=== PATIENT | male | born 1955 | race Caucasian/White ===

== ENCOUNTER 2017-04-30 14:29 | Emergency (ER) | payer OTHER, BC ==
--- NOTE | 2017-04-30 16:53 | EDM.PDOC ---
ED HPI GENERAL MEDICAL PROBLEM - General Chief Complaint: Lower Extremity Injury/Pain Stated Complaint: LEFT LEG Time Seen by Provider: 04/30/17 16:46 Source of Information: Reports: Patient, Family History Limitations: Reports: Physical Impairment - History of Present Illness INITIAL COMMENTS - FREE TEXT/NARRATIVE: 61 y.o.w.m -prev. healthy-came to the ed wit sudden onset of left thigh pain and swelling after he over stretched his legs yesterday. He noticed some discoloration at his left ant thigh as well. No N/V/D, dizziness or any other acute medical issue at this time. Onset: Today Onset Date: 04/30/17 Onset Time: 08:00 Duration: Hour(s): Treatments HEALTHCARE CONSULTANT: Reports: Cold Therapy, NSAIDS Left Upper Leg Pain Score (Numeric/FACES): 4 - Related Data Allergies Allergy/AdvReac Type Severity Reaction Status Date / Time No Known Allergies Allergy Verified 04/30/17 15:13 Home Meds: Home Meds NK [No Known Home Meds] 04/30/17 [History] Past Medical History - Infectious Disease History Infectious Disease History: Reports: Chicken Pox, Mumps - Past Surgical History Musculoskeletal Surgical History: Reports: Other (See Below) Other Musculoskeletal Surgeries/Procedures:: back surgury fusion L 4 AND 5 Social & Family History - Tobacco Use Smoking Status *Q: Never Smoker Second Hand Smoke Exposure: No - Caffeine Use Caffeine Use: Reports: Coffee - Recreational Drug Use Recreational Drug Use: No Review of Systems - Review of Systems Review Of Systems: See Below Constitutional: Reports: No Symptoms Eyes: Reports: No Symptoms Ears: Reports: No Symptoms Nose: Reports: No Symptoms Mouth/Throat: Reports: No Symptoms Respiratory: Reports: No Symptoms Cardiovascular: Reports: No Symptoms GI/Abdominal: Reports: No Symptoms Genitourinary: Reports: No Symptoms Musculoskeletal: Reports: Muscle Pain (left thigh) Skin: Reports: Rash (left thigh) Neurological: Reports: No Symptoms Psychiatric: Reports: No Symptoms ED EXAM, GENERAL - Physical Exam Exam: See Below Exam Limited By: No Limitations General Appearance: Alert, WD/WN, Mild Distress Eye Exam: Bilateral Eye: Normal Inspection Ears: Normal External Exam Ear Exam: Bilateral Ear: Auricle Normal Nose: Normal Inspection Throat/Mouth: Normal Inspection, Normal Lips Head: Atraumatic, Normocephalic Neck: Normal Inspection, Supple, Non-Tender, Full Range of Motion Respiratory/Chest: No Respiratory Distress, Lungs Clear, Normal Breath Sounds Cardiovascular: Normal Peripheral Pulses, Regular Rate, Rhythm, No Edema Peripheral Pulses: 2+: Femoral (L), Femoral (R) GI/Abdominal: Normal Bowel Sounds, Soft, Non-Tender, No Organomegaly (Male) Exam: No Hernia, Normal Inspection Rectal (Males) Exam: Deferred Back Exam: Normal Inspection, Full Range of Motion Extremities: Normal Range of Motion, Normal Capillary Refill, Other (swelling left thigh) Neurological: Alert, Oriented, CN II-XII Intact, Normal Cognition, Normal Gait Psychiatric: Normal Affect, Normal Mood Skin Exam: Warm, Dry, Ecchymosis (left thigh) Lymphatic: No Adenopathy Course - Vital Signs Text/Narrative:: 61 y.o.w.m -prev. healthy-came to the ed wit sudden onset of left thigh pain and swelling after he over stretched his legs yesterday. He noticed some discoloration at his left ant thigh as well. No N/V/D, dizziness or any other acute medical issue at this time. PE: Swelling left thigh, minor with ecchymosis Imaging: Left thigh NAD, official report is pending Labs Impression: left thigh strain Tx: Ice, ICE wrap Reexam: Improved Plan: D/C with instructions Last Recorded V/S: Last Vital Signs Temp 36.6 C 04/30/17 17:10 Pulse 71 04/30/17 17:10 Resp 14 04/30/17 17:10 BP 140/79 04/30/17 17:10 Pulse Ox 100 04/30/17 17:10 - Orders/Labs/Meds Labs: Laboratory Tests 04/30/17 04/30/17 04/30/17 Range/Units 15:23 15:23 15:23 WBC 5.4 (4.5-12.0) X10-3/uL RBC 4.69 (4.30-5.75) x10(6)uL Hgb 14.5 (11.5-15.5) g/dL Hct 43.3 (30.0-51.3) % MCV 92.4 (80-96) fL MCH 31.0 (27.7-33.6) pg MCHC 33.6 (32.2-35.4) g/dL RDW 13.0 (11.5-15.5) % Plt Count 239 (125-369) X10(3)uL MPV 8.2 (7.4-10.4) fL Neut % (Auto) 67.0 (46-82) % Lymph % (Auto) 21.2 (13-37) % Park % (Auto) 8.5 (4-12) % Eos % (Auto) 3 (1.0-5.0) % Baso % (Auto) 1 (0-2) % Neut # (Auto) 3.7 (1.6-8.3) # Lymph # (Auto) 1.1 (0.6-5.0) # Park # (Auto) 0.5 (0.0-1.3) # Eos # (Auto) 0.1 (0.0-0.8) # Baso # (Auto) 0.0 (0.0-0.2) # PT 10.9 (8.7-11.1) INR 1.08 (0.89-1.13) Sodium 140 (135-145) mmol/L Potassium 3.9 (3.5-5.3) mmol/L Chloride 106 (100-110) mmol/L Carbon Dioxide 28 (23-29) mmol/L BUN 22 (8-23) mg/dL Creatinine 1.0 (0.6-1.3) mg/dL Est Cr Clr Drug Dosing 83.67 mL/min Estimated GFR (MDRD) > 60 (>60) BUN/Creatinine Ratio 22.0 H (9-20) Glucose 131 H (80-116) mg/dL Calcium 9.3 (8.6-10.2) mg/dL Departure - Departure Time of Disposition: 16:46 Disposition: Home, Self-Care 01 Condition: Good Clinical Impression: Muscle ache of extremity Hematoma of left thigh Qualifiers: Encounter type: initial encounter Qualified Code(s): S70.12XA - Contusion of left thigh, initial encounter - Discharge Information Referrals: PCP,None [Primary Care Provider] - Forms: ED Department Discharge Additional Instructions: Ice, rest and elevation, light duty only, BRUCE wrap left thigh when in upright position. repeat US left thigh in 1-2 weeks. Motrin for pain. Light duty till reevaluated. Please come back immediately if your symptoms -light headedness, pain etc-get acutely worse.
[2017-04-30 17:13] VITALS: BP 140/79
--- NOTE | 2017-05-01 09:18 | US ---
INDICATION: Swelling left thigh after stretching of left leg. DUPLEX ULTRASOUND, LEFT LOWER EXTREMITY VEINS: Multiple ultrasonic images with 2-D real time, duplex Doppler spectral analysis, and color flow imaging were obtained 04/30/2017 and revealed the deep venous structures and the greater saphenous vein to be patent with blood flow and compressibility. There is noted a 4 x 1.6-cm transversely measured area of oval abnormal echogenicity between muscle planes, suggesting an organizing hematoma. Follow-up study in 1- 3 months is recommended to confirm involution. No definite blood flow is noted within that area. The study was otherwise unremarkable. IMPRESSION: 1. No evidence of deep venous thrombosis or greater saphenous thrombosis. 2. Probable hematoma organizing in the anterior thigh in the area of tenderness denoted by the patient. Report was called to Dr. Zepeda at 1637 hours, 04/30/2017. [facility]
== END 2017-04-30 17:10 | disposition home or self-care (01) ==
LOC: FB.ED 14:29
DX: M79.1 Myalgia (principal); S70.12XA Contusion of left thigh, initial encounter; X50.9XXA Other and unspecified overexertion or strenuous movements or postures, initial encounter; Z98.890 Other specified postprocedural states
CPT/HCPCS: 36415; 80048; 85025; 85610; 93971-LT; 99283